=== PATIENT | male | born 1980 | race African-American/Black ===

== ENCOUNTER 2021-05-06 23:56 | Emergency (ER) | payer OTHER ==
[~2021-05-06] VITALS: Ht 182.9 cm; Wt 108.0 kg
[2021-05-07 00:10] VITALS: BP_SYST 141
--- NOTE | 2021-05-07 00:10 | NUR ---
Patient to ER bed 2 to gown for evaluation. Side rails up. Report given to January.
--- NOTE | 2021-05-07 00:15 | NUR ---
Patient BIB by friend/family. C/O Lower back pain x 2 weeks. Patient reported, had lower back pain on and off for 2 weeks.
--- NOTE | 2021-05-07 00:35 | NUR ---
ER Dr. White at bedside examining patient.
[2021-05-07] MEDS ORDERED: KETO10TA2 PO (00:43)
[2021-05-07] MEDS ORDERED: CYCL10TA24 PO (00:43)
[2021-05-07] MEDS ORDERED: KETOROLAC TROMETHAMINE 60 MG/2 ML VIAL IM ONE (00:45)
[2021-05-07 01:26] VITALS: BP_SYST 141
--- NOTE | 2021-05-07 01:26 | NUR ---
Patient given written and verbal discharge instructions and verbalizes understanding. ER MD discussed with patient the results and treatment provided. Patient in stable condition. ID arm band removed. Rx of Flexeril and Ketorolac given. Patient educated on pain management and to follow up with PMD. Pain Scale 2/10. Opportunity for questions provided and answered. Medication side effect fact sheet provided.
== END 2021-05-07 01:26 | disposition home or self-care (01) ==
LOC: SED 23:56
DX: M54.5 Low back pain (principal); Z79.899 Other long term (current) drug therapy
CPT/HCPCS: 96372; 99283; J1885